=== PATIENT | male | born 1970 | race Caucasian/White ===

== ENCOUNTER 2016-06-14 15:00 | Emergency (ER) | payer BC ==
[~2016-06-14] VITALS: Ht 193 cm; Wt 100.5 kg
[2016-06-14 15:03] VITALS: TEMP 36.7; Ht 193 cm; Wt 100.5 kg
[2016-06-14] MEDS ORDERED: MoRPHine SULFATE 10 MG/ML CARP/VIAL IV STA (15:18)
[2016-06-14] MEDS ORDERED: ONDANSETRON INJ 2 MG/ML 2 ML VIAL IV STA (15:18)
[2016-06-14] MEDS ORDERED: KETOROLAC TROMETHAMINE 30 MG/ML VIAL IV STA (15:18)
[2016-06-14] MEDS ORDERED: SODIUM CHLORIDE 0.9% 1000ML 1,000 ML IV STA ×2 (15:24)
[2016-06-14 15:32] LABS: BASO % 0.9 %; BASO ABS # 0.04 K/uL (0-0.2); COMPLETE YES; EOS % 2.4 %; HEMATOCRIT 42.8 % (42-52); IG% 0.5 %; LYMPH ABS # 1.35 K/uL (1.2-3.4); MEAN CELL VOLUME 82.9 fL (80-100); MEAN CORPUSCULAR HEMOGLOBIN 29.5 pg (25-34); MEAN CORPUSCULAR HGB CONC 35.5 g/dl (32-36); MEAN PLATELET VOLUME 10.8 fL (7.4-10.4); MONO % 10.4 %; NEUT % 53.8 %; PLATELET COUNT 202 K/uL (130-400); RED BLOOD COUNT 5.16 M/uL (4.7-6.1); WHITE BLOOD COUNT 4.22 K/uL (4.8-10.8)
[2016-06-14 15:42] LABS: BUN/CREATININE RATIO 13.6 (10-20); CALCIUM 8.7 mg/dl (8.5-10.1); CREATININE 1.3 mg/dl (0.60-1.40); POTASSIUM 3.8 mmol/L (3.5-5.1)
[2016-06-14] MEDS ORDERED: NAPR1TAB9 PO (15:54)
[2016-06-14] MEDS ORDERED: DORZ2SOL17 OP (15:54)
[2016-06-14] MEDS ORDERED: BRIM0.2S OPB (15:54)
[2016-06-14] MEDS ORDERED: MISCCAP80 PO (15:54)
--- NOTE | 2016-06-14 16:41 | DIAGNOSTIC IMAGING REPORT ---
CT SCAN OF THE ABDOMEN AND PELVIS WITHOUT IV CONTRAST CLINICAL HISTORY: Right lower quadrant abdominal pain. COMPARISON STUDY: No priors. TECHNIQUE: CT scan of the abdomen and pelvis is performed from the lung bases to the proximal femora. Images are reviewed in the axial, sagittal, and coronal planes. IV contrast was not administered for this examination as per the referring clinician. Automated dose control exposure was utilized. CT DOSE: 1034.13 mGy.cm FINDINGS: Lung bases: The heart is normal in size and without pericardial effusion. A fat-containing Bochdalek hernia is noted in the right lung base. The lung bases are otherwise clear. There is a small hiatal hernia. Liver: The unenhanced liver is normal in size, contour, and attenuation. There is no intrahepatic biliary ductal dilatation. Gallbladder: Unremarkable. Spleen: Normal in size and attenuation. Pancreas: Unremarkable. Adrenal glands: Unremarkable. Kidneys: The unenhanced kidneys are normal in size. There is a 3 mm obstructing calculus in the distal right ureter at the level of the pelvic inlet seen on image #280. This causes mild right hydroureteronephrosis. No additional calculi are identified in either kidney. A 1.8 cm hyperdense lesion is seen in the interpolar left kidney on image #151. A 1.8 cm simple cyst is noted in the interpolar right kidney. Abdominal vasculature: The abdominal aorta is normal in course and caliber noting scattered foci of atherosclerotic calcification. Bowel: The small bowel and colon are normal in course and caliber. The appendix is normal in appearance. Peritoneum: There is no intraperitoneal free air or abdominal ascites. There is a small fat-containing umbilical hernia. Lymphadenopathy: None. Pelvic viscera: The bladder, prostate, and seminal vesicles are normal as imaged. Skeletal structures: No lytic or blastic lesions are seen. IMPRESSION: 1. There is a 3 mm obstructing calculus in the distal right ureter at the level of the pelvic inlet. This causes mild right-sided hydronephrosis. 2. No additional calculi are identified in either kidney. 3. There is a 1.8 cm hyperdense lesion in the interpolar left kidney. This likely represents a complex/hemorrhagic cyst. Follow-up with a nonemergent renal ultrasound is recommended for further assessment. Electronically signed by: Darian Mcclain M.D. 06/14/2016 4:39 PM Dictated Date/Time: 06/14/2016 4:32 PM
[2016-06-14] MEDS ORDERED: TAMSULOSIN HCL 0.4 MG CAP PO ONE (17:00)
[2016-06-14] MEDS ORDERED: TAMS0.4C38 PO (17:21)
[2016-06-14] MEDS ORDERED: OXYC1TAB3 PO (17:21)
[2016-06-14] MEDS ORDERED: ONDA4TAB10 SL (17:21)
--- NOTE | 2016-06-14 17:23 | EMERGENCY ROOM VISIT NOTE ---
ED Visit Note First contact with patient: 15:14 CHIEF COMPLAINT: Sudden onset right lower quadrant pain one hour ago HISTORY OF PRESENT ILLNESS: Patient is an otherwise healthy 46-year-old white male who presents emergency department for evaluation of pain in the right lower quadrant that began abruptly about one hour ago. The pain was mild and dull initially, and has steadily worsened. He reports having difficulty getting comfortable in any position. He has had some waves of nausea. The pain occasionally radiates through to his back. He presently rates it a 6/10. He has not urinated since the pain started, but prior to the pain did not note any dysuria, frequency, urgency or hematuria. He does note that he has had about 3 or 4 days of diarrhea which he describes as 2 loose bowel movements per day. He also notes some minor chest congestion recently. He has not had any fevers. He does not take any medications for his symptoms. He is never had pain similar to this previously. REVIEW OF SYSTEMS: Review of systems as per HPI. All other systems reviewed were negative. 10 systems reviewed. PMH: Electronic medical records are reviewed and summarized as above/below. See Problem List. SOCIAL HISTORY: Patient lives at home with his . Employed. Non-smoker, no excessive alcohol use. PHYSICAL EXAM: Vital Signs: Reviewed Nurse's notes. CONSTITUTIONAL: Patient is not a slightly uncomfortable 46-year-old white male who was awake and alert and in moderate distress due to his stated complaint. He is writhing on the gurney, trying to get comfortable. EYES: Pupils equal, round, reactive to light and accommodation. EOMs intact without nystagmus. Sclera are anicteric. ENT: Tympanic membranes intact, with normal landmarks. External canals are clear. Oral and nasopharynx are clear. Mucous membranes are moist, no lesions , tongue and gums appear normal. CARDIOVASCULAR: Regular rate and rhythm, with normal S1 and S2, no murmur or gallop or rub is heard. No carotid bruits auscultated. No JVD. Peripheral pulses easily palpable. RESPIRATORY: Breath sounds equal and clear to auscultation without wheezes, rales, or rhonchi heard. Full and equal chest expansion without accessory muscle use or retractions. ABDOMEN: Bowel sounds are present. Abdomen is soft, nontender and nondistended. No guarding, rebound or rigidity. No pain over McBurney's point. INTEGUMENTARY: No lesions or rash, normal skin turgor. LYMPH: No lymphadenopathy. EMERGENCY DEPARTMENT COURSE: The patient was seen and evaluated as above. IV access was obtained. He was hydrated with normal saline solution medicated with Toradol 30 mg, morphine 8 mg and Zofran 4 mg IV with excellent relief of his pain. CBC with differential and PRP were performed. The patient was not immediately able to provide a urine sample, however given his presentation I was suspicious for a kidney stone and therefore CT scan was ordered. Findings are consistent with a 3 mm stone in the distal right ureter. No other ureteral or renal calculi were noted. Cyst in the left kidney appeared benign and nonemergent ultrasound was advised in follow-up. Appendix was visualized and was normal. Patient did provide a urine sample which was dipped and noted hematuria only. CBC with differential did not demonstrate any leukocytosis, and electrolytes and renal functions are normal. Patient was medicated with Flomax 0.4 mg orally in the emergency department and issued a Zofran and oxycodone home pack with prescriptions. He was given a urine strainer and instructed on its use. Conservative care measures were discussed with the patient. He was educated on the worrisome signs or symptoms for which he should return to the emergency department. The patient rated his discomfort a 0 /10 at discharge. Differential diagnoses includes UTI, pyelonephritis, renal colic, incarcerated hernia, appendicitis, bowel section, perforation, gas, constipation, among others. CT SCAN OF THE ABDOMEN AND PELVIS WITHOUT IV CONTRAST CLINICAL HISTORY: Right lower quadrant abdominal pain. COMPARISON STUDY: No priors. TECHNIQUE: CT scan of the abdomen and pelvis is performed from the lung bases to the proximal femora. Images are reviewed in the axial, sagittal, and coronal planes. IV contrast was not administered for this examination as per the referring clinician. Automated dose control exposure was utilized. CT DOSE: 1034.13 mGy.cm FINDINGS: Lung bases: The heart is normal in size and without pericardial effusion. A fat-containing Bochdalek hernia is noted in the right lung base. The lung bases are otherwise clear. There is a small hiatal hernia. Liver: The unenhanced liver is normal in size, contour, and attenuation. There is no intrahepatic biliary ductal dilatation. Gallbladder: Unremarkable. Spleen: Normal in size and attenuation. Pancreas: Unremarkable. Adrenal glands: Unremarkable. Kidneys: The unenhanced kidneys are normal in size. There is a 3 mm obstructing calculus in the distal right ureter at the level of the pelvic inlet seen on image #280. This causes mild right hydroureteronephrosis. No additional calculi are identified in either kidney. A 1.8 cm hyperdense lesion is seen in the interpolar left kidney on image #151. A 1.8 cm simple cyst is noted in the interpolar right kidney. Abdominal vasculature: The abdominal aorta is normal in course and caliber noting scattered foci of atherosclerotic calcification. Bowel: The small bowel and colon are normal in course and caliber. The appendix is normal in appearance. Peritoneum: There is no intraperitoneal free air or abdominal ascites. There is a small fat-containing umbilical hernia. Lymphadenopathy: None. Pelvic viscera: The bladder, prostate, and seminal vesicles are normal as imaged. Skeletal structures: No lytic or blastic lesions are seen. IMPRESSION: 1. There is a 3 mm obstructing calculus in the distal right ureter at the level of the pelvic inlet. This causes mild right-sided hydronephrosis. 2. No additional calculi are identified in either kidney. 3. There is a 1.8 cm hyperdense lesion in the interpolar left kidney. This likely represents a complex/hemorrhagic cyst. Follow-up with a nonemergent renal ultrasound is recommended for further assessment. Problem List Medical Problems: (1) Glaucoma Status: Chronic Surgical Problems: (1) S/P ACL reconstruction Status: Resolved Current/Historical Medications Scheduled Brimonidine Tartrate-Timolol M (Combigan), 1 DROP OPB BID Dorzolamide Hcl (Trusopt Oph), 1 DROPS OP BID Naproxen (Aleve), 440 MG PO PRN UD Probiotic Product (Probiotic), 1 CAP PO DAILY Tamsulosin Hcl (Flomax), 0.4 MG PO DAILY Scheduled PRN Ondasetron Odt (Zofran Odt), 4 MG SL Q6H PRN for Nausea or Vomiting Oxycodone Immediate Rel Tab (Roxicodone Ir), 1-2 TAB PO Q4H PRN for Severe Pain Allergies Coded Allergies: Penicillins (Verified Allergy, Mild, rash , 06/14/16) Vital Signs Date Time Temp Pulse Resp B/P Pulse Ox O2 Delivery O2 Flow Rate FiO2 06/14/16 17:38 52 16 129/71 96 Room Air 06/14/16 16:58 56 20 120/67 97 Room Air 06/14/16 15:03 36.7 50 16 149/89 97 Room Air Laboratory Results 06/14/16 15:15 Red Blood Count 5.16, Mean Corpuscular Volume 82.9, Mean Corpuscular Hemoglobin 29.5, Mean Corpuscular Hemoglobin Concent 35.5, Mean Platelet Volume 10.8, Neutrophils (%) (Auto) 53.8, Lymphocytes (%) (Auto) 32.0, Monocytes (%) (Auto) 10.4, Eosinophils (%) (Auto) 2.4, Basophils (%) (Auto) 0.9, Neutrophils # (Auto ) 2.27, Lymphocytes # (Auto) 1.35, Monocytes # (Auto) 0.44, Eosinophils # (Auto ) 0.10, Basophils # (Auto) 0.04 06/14/16 15:15 Test 06/14/16 15:15 White Blood Count 4.22 K/uL (4.8-10.8) Red Blood Count 5.16 M/uL (4.7-6.1) Hemoglobin 15.2 g/dL (14.0-18.0) Hematocrit 42.8 % (42-52) Mean Corpuscular Volume 82.9 fL (80-100) Mean Corpuscular Hemoglobin 29.5 pg (25-34) Mean Corpuscular Hemoglobin Concent 35.5 g/dl (32-36) Platelet Count 202 K/uL (130-400) Mean Platelet Volume 10.8 fL (7.4-10.4) Neutrophils (%) (Auto) 53.8 % Lymphocytes (%) (Auto) 32.0 % Monocytes (%) (Auto) 10.4 % Eosinophils (%) (Auto) 2.4 % Basophils (%) (Auto) 0.9 % Neutrophils # (Auto) 2.27 K/uL (1.4-6.5) Lymphocytes # (Auto) 1.35 K/uL (1.2-3.4) Monocytes # (Auto) 0.44 K/uL (0.11-0.59) Eosinophils # (Auto) 0.10 K/uL (0-0.5) Basophils # (Auto) 0.04 K/uL (0-0.2) RDW Standard Deviation 39.5 fL (36.4-46.3) RDW Coefficient of Variation 13.0 % (11.5-14.5) Immature Granulocyte % (Auto) 0.5 % Immature Granulocyte # (Auto) 0.02 K/uL (0.00-0.02) Anion Gap 8.0 mmol/L (3-11) Est Creatinine Clear Calc Drug Dose 86.2 ml/min Estimated GFR () 75.3 Estimated GFR (Non- 65.0 BUN/Creatinine Ratio 13.6 (10-20) Calcium Level 8.7 mg/dl (8.5-10.1) Medications Administered Medications (Trade) Dose Ordered Sig/Shaquille Route Start Time Stop Time Status Last Admin Dose Admin Ketorolac Tromethamine (Toradol Inj) 30 mg NOW STAT IV 06/14/16 15:18 06/14/16 15:20 DC 06/14/16 15:28 30 MG Morphine Sulfate (MoRPHine SULFATE INJ) 8 mg NOW STAT IV 06/14/16 15:18 06/14/16 15:20 DC 06/14/16 15:32 8 MG Ondansetron HCl 4 mg 4 mg NOW STAT IV 06/14/16 15:18 06/14/16 15:20 DC 06/14/16 15:27 4 MG Sodium Chloride 1,000 ml @ 999 mls/hr Q1H1M STAT IV 06/14/16 15:24 06/14/16 16:24 DC 06/14/16 15:27 999 MLS/HR Sodium Chloride (Nss 1000ml) 1,000 ml @ 250 mls/hr Q4H STAT IV 06/14/16 15:24 06/14/16 18:24 DC 06/14/16 16:34 250 MLS/HR Tamsulosin HCl (Flomax Cap) 0.4 mg NOW ONCE PO 06/14/16 17:00 06/14/16 17:01 DC 06/14/16 16:57 0.4 MG Oxycodone HCl (Roxicodone Immediate Rel 5MG Home Pack) 1 homepack UD ONCE PO 06/14/16 17:30 06/14/16 17:31 DC 06/14/16 17:52 1 HOMEPACK Ondansetron HCl (ZOFRAN ODT 4MG Home Pack) 1 homepack UD ONCE PO 06/14/16 17:30 06/14/16 17:31 DC 06/14/16 17:52 1 HOMEPACK Departure Information Impression Primary Impression: Right ureteral calculus Additional Impression: Right flank pain Prescriptions Ondasetron Odt (ZOFRAN ODT) 4 Mg Tab 4 MG SL Q6H Y for Nausea or Vomiting, #20 TAB Prov: Leana Terrell PA 06/14/16 Oxycodone Immediate Rel Tab (ROXICODONE IR) 5 Mg Tab 1-2 TAB PO Q4H Y for Severe Pain, #30 TAB For Initial Treatment Prov: Leana Terrell PA 06/14/16 Tamsulosin Hcl (FLOMAX) 0.4 Mg Cap 0.4 MG PO DAILY, #14 CAP Prov: Leana Terrell PA 06/14/16 Patient Instructions [facility] Additional Instructions KIDNEY STONE INSTRUCTIONS: DO NOT drive, drink alcohol, operate machinery, or perform dangerous activities today. You were given medications in the ER that can affect your ability to safely function or operate a vehicle. Oxycodone (OxyIR) 5mg: Take 1-2 pills every four hours as needed for breakthrough pain. Avoid alcohol, operating machinery or dangerous equipment, working on ladders or roofs, DRIVING, making important decisions, or situations where being under the influence may be dangerous. It is recommended to use an [id number] stool softener such as Colace, 100mg twice daily while taking this medication to avoid constipation. Zofran(odansetron) tablets 4mg: Take one and allow it to dissolve in your mouth every four hours as needed for nausea or vomiting. Ibuprofen(Motrin, Advil) may be used for fever or pain. Use 600mg every six hours as needed. Take with food. Avoid using more than 2400mg in a 24 hour period. Do not use 2400mg per day for more than three consecutive days without physician direction. Prolonged inappropriate use can lead to stomach upset or ulcers. This is available over the counter and typically comes in 200mg tablets. (AND/OR) Acetaminophen(Tylenol) may be used for fever or pain. Use 1000mg every eight hours as needed. Avoid using more than 3000mg in a 24 hour period. This is available over the counter. Read all the package inserts or medication information paperwork provided. If you have any questions or concerns call your primary provider, pharmacist or the ER for assistance. Strain your urine and collect all the stones or debris for the follow up appointment. Rest and avoid strenuous activity until your stone passes and symptoms resolve. Drink plenty of fluids. Continue current medications. Return to the ER for worsening abdominal or back pain, vomiting, fevers, passing out, or as needed. Follow up with your primary care provider next week for recheck of your current condition. Problem Qualifiers
[2016-06-14] MEDS ORDERED: OXYCODONE IR HOME PACK PO ONE (17:30)
[2016-06-14] MEDS ORDERED: ONDANSETRON HOME PACK 4MG OD TAB PO ONE (17:30)
[2016-06-14 17:38] VITALS: BP 129/71; PULSE 52; O2SAT 96
== END 2016-06-14 17:58 | disposition home or self-care (01) ==
LOC: C.EDB 15:02 → C.EDC 17:58
DX: N20.1 Calculus of ureter (principal); H40.9 Unspecified glaucoma; Z79.899 Other long term (current) drug therapy